=== PATIENT | female | born 1935 | race Caucasian/White ===

== ENCOUNTER 2016-09-05 15:22 | Emergency (ER) | payer OTHER ==
[~2016-09-05] VITALS: Ht 160 cm; Wt 60.0 kg
[~2016-09-05 15:22] MED LIST: AMLO5 PO; ATOR40TA49 PO; CLOP75 PO; COQ-100C2 PO; ESZO3 PO; FLUO-1 PO; GLIM4 PO; ISOSPOW PO; LORTA5 PO; OMEG100037 PO; PRIM50TA PO; PROT40TA PO; TAB-TAB PO; TRAD5TAB PO
[2016-09-05 15:25] VITALS: BP 144/71; PULSE 92; RESP 18; TEMP 98.4; O2SAT 95
[2016-09-05] MEDS ORDERED: MULT1TAB46 PO (15:50)
[2016-09-05] MEDS ORDERED: LIPI80TA PO (15:50)
[2016-09-05] MEDS ORDERED: LUNE3TAB PO (15:50)
[2016-09-05] MEDS ORDERED: PROT40TA PO (15:50)
[2016-09-05] MEDS ORDERED: FISH1000 PO (15:50)
[2016-09-05] MEDS ORDERED: COQ-50CA2 PO (15:50)
[2016-09-05] MEDS ORDERED: TRAD5TAB PO (15:50)
[2016-09-05] MEDS ORDERED: PLAV75TA29 PO (15:50)
[2016-09-05] MEDS ORDERED: AMAR4TAB PO (15:50)
[2016-09-05] MEDS ORDERED: ISOS20TA PO (15:50)
[2016-09-05] MEDS ORDERED: PRIM50TA5 PO (15:50)
[2016-09-05] MEDS ORDERED: ASPIRIN 81 MG CHEW TAB PO ONE (16:00)
[2016-09-05] MEDS ORDERED: SODIUM CHLORIDE 0.9% FLUSH 10 ML FLUSH IVF PRN (16:00)
[2016-09-05] MEDS ORDERED: NITROGLYCERIN 0.4 MG SL 25 TABS/BTL SL ONE (16:00)
[2016-09-05] MEDS ORDERED: SODIUM CHLORID 0.9% 500 ML INJ 500 ML IV ONE (16:00)
--- NOTE | 2016-09-05 16:02 | PD ---
HPI Chief Complaint: Chest Pain Time Seen by Provider: 15:38 Travel History International Travel<30 days: No Contact w/Intl Traveler<30days: No Traveled to known affect area: No History of Present Illness HPI The patient is a 81-year-old female who presents emergency department for right sided neck pain. The patient states she developed right sided neck pain proximal be 30 minutes prior to arrival while sitting in a car. She denies any trauma to right aspect of the neck. The pain is located over the right sternocleidomastoid, is worse with palpation, movement, and swallowing. She also states the pain radiates into the anterior aspect of the right chest. She does have a history of costochondritis and states she has tenderness of the anterior aspect of the chest on the right. The pain is described as dull, achy , worse with palpation and movement, slightly alleviated at rest. Patient denies any nausea, vomiting, diaphoresis, or shortness of breath. She denies any recent exertional shortness of breath. The patient does have a history of CAD with previous stent placement by her churn tender, Dr. Sinclair. Symptoms are moderate, symptoms exacerbated by movement and palpation, slightly alleviated at rest. 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) Cardiac Catheterization: Yes Cardiovascular Problems: Yes High Cholesterol: Yes Chemotherapy: No Chest Pain: Yes Congestive Heart Failure: No COPD: Yes Cerebrovascular Accident: No Diabetes: Yes Patient Takes Glucophage: No Diminished Hearing: No Endocrine: No Gastrointestinal Disorders: Yes GERD: Yes Glaucoma: No Genitourinary: No Headaches: No Hepatitis: No Hiatal Hernia: No Hypertension: Yes Immune Disorder: No Kidney Stones: No Musculoskeletal: Yes Neurologic: Yes (ESSENTIAL TREMORS) Psychiatric: Yes Reproductive: No Respiratory: Yes Immunizations Current: Yes Migraines: Yes Myocardial Infarction: No Radiation Therapy: No Renal Failure: No Seizures: No Sickle Cell Disease: No Sleep Apnea: No Thyroid Disease: No Ulcer: Yes Influenza Vaccination: Yes ?: Not Menopausal: Yes Past Surgical History Abdominal Surgery: No AICD: No Appendectomy: No Arteriovenous Shunt: No Cardiac Surgery: Yes (STENTS 06/2004) Cholecystectomy: No Coronary Stent: Yes (X1) Ear Surgery: No Endocrine Surgery: No Eye Surgery: No Genitourinary Surgery: No Gynecologic Surgery: No Insulin Pump: No Joint Replacement: No Oral Surgery: No Pacemaker: No Thoracic Surgery: No Other Surgery: Yes (stent in 2005, 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, cataracts bilat) Social History Alcohol Use: No Tobacco Use: No Substance Use: No Allergies-Medications (Allergen,Severity, Reaction): Coded Allergies: Contrast Media (Verified Allergy, Severe, Respiratory Failure, 09/05/16) Penicillin (Verified Allergy, Severe, Rash, 09/05/16) Morphine (Verified Allergy, Unknown, 09/05/16) Reported Meds & Prescriptions Reported Meds & Active Scripts Active Reported Primidone 50 Mg Tab 100 Mg PO HS Protonix (Pantoprazole Sodium) 40 Mg Tab 40 Mg PO DAILY Fish Oil ([place]-3 Fatty Acids) 1,000 Mg Cap 5,000 Mg PO HS Multi Vitamin Daily (Multiple Vitamin) 1 Tab Tab 1 Tab PO DAILY Tradjenta (Linagliptin) 5 Mg Tab 5 Mg PO DAILY Isosorbide Mononitrate 20 Mg Tab 20 Mg PO BID Take 2 doses 7 hours apart. Amaryl (Glimepiride) 4 Mg Tab 8 Mg PO HS Take with breakfast or first main meal Lunesta (Eszopiclone) 3 Mg Tablet 0.5 Tab PO HS Coq-10 (Coenzyme Q10 (Ubidecarenone)) 50 Mg Cap 1 Tab PO DAILY Plavix (Clopidogrel Bisulfate) 75 Mg Tab 75 Mg PO Q3D Lipitor (Atorvastatin Calcium) 80 Mg Tab 80 Mg PO HS Review of Systems Except as stated in HPI: all other systems reviewed are Neg General / Constitutional: No: Fever HENT: Positive: Neck Pain, No: Headaches Cardiovascular: Positive: Chest Pain or Discomfort, No: Diaphoresis Respiratory: No: Shortness of Breath Gastrointestinal: No: Nausea, Vomiting, Abdominal Pain Musculoskeletal: No: Myalgias, Arthralgias Skin: No Rash Physical Exam Narrative GENERAL: Awake, alert, pleasant 81-year-old female who appears her stated age and is in no acute respiratory distress. SKIN: Focused skin assessment warm/dry. HEAD: Atraumatic. Normocephalic. EYES: Pupils equal and round. No scleral icterus. No injection or drainage. ENT: No nasal bleeding or discharge. Mucous membranes pink and moist. NECK: Trachea midline. No JVD. Tenderness of the right sternocleidomastoid. CARDIOVASCULAR: Regular rate and rhythm. No murmur appreciated. Palpation of the right chest wall produces symptoms. RESPIRATORY: No accessory muscle use. Clear to auscultation. Breath sounds equal bilaterally. GASTROINTESTINAL: Abdomen soft, non-tender, nondistended. No rebound tenderness. MUSCULOSKELETAL: No obvious deformities. No clubbing. No cyanosis. No edema. NEUROLOGICAL: Awake and alert. No obvious cranial nerve deficits. Motor grossly within normal limits. Normal speech. PSYCHIATRIC: Appropriate mood and affect; insight and judgment normal. Data Data Last Documented VS Vital Signs Date Time Temp Pulse Resp B/P Pulse Ox O2 Delivery O2 Flow Rate FiO2 09/05/16 20:01 81 16 167/74 96 Room Air 164/63 09/05/16 15:25 98.4 Orders Ckmb (Isoenzyme) Profile (09/05/16 15:57) Complete Blood Count With Diff (09/05/16 15:57) Comprehensive Metabolic Panel (09/05/16 15:57) Magnesium (Mg) (09/05/16 15:57) Prothrombin Time / Inr (Pt) (09/05/16 15:57) Act Partial Throm Time (Ptt) (09/05/16 15:57) Troponin I (09/05/16 15:57) Chest, Single Ap (09/05/16 15:57) Ecg Monitoring (09/05/16 15:57) Bilateral Bp Monitoring (09/05/16 15:57) Iv Access Insert/Monitor (09/05/16 15:57) Oximetry (09/05/16 15:57) Oxygen Administration (09/05/16 15:57) Aspirin Chew (Aspirin Chew) (09/05/16 16:00) Sodium Chloride 0.9% Flush (Ns Flush) (09/05/16 16:00) Nitroglycerin Sl (Nitrostat Sl) (09/05/16 16:00) Sodium Chlorid 0.9% 500 Ml Inj (Ns 500 M (09/05/16 16:00) Troponin I (09/05/16 19:00) Ketorolac Inj (Toradol Inj) (09/05/16 16:45) Electrocardiogram (09/05/16 15:25) Labs Laboratory Tests Test 09/05/16 09/05/16 16:00 19:00 White Blood Count 8.7 TH/MM3 Red Blood Count 3.81 MIL/MM3 Hemoglobin 11.4 GM/DL Hematocrit 34.1 % Mean Corpuscular Volume 89.6 FL Mean Corpuscular Hemoglobin 30.0 PG Mean Corpuscular Hemoglobin 33.5 % Concent Red Cell Distribution Width 13.9 % Platelet Count 261 TH/MM3 Mean Platelet Volume 7.9 FL Neutrophils (%) (Auto) 65.6 % Lymphocytes (%) (Auto) 22.0 % Monocytes (%) (Auto) 11.4 % Eosinophils (%) (Auto) 0.6 % Basophils (%) (Auto) 0.4 % Neutrophils # (Auto) 5.7 TH/MM3 Lymphocytes # (Auto) 1.9 TH/MM3 Monocytes # (Auto) 1.0 TH/MM3 Eosinophils # (Auto) 0.1 TH/MM3 Basophils # (Auto) 0.0 TH/MM3 CBC Comment DIFF FINAL Differential Comment Prothrombin Time 10.3 SEC Prothromb Time International 0.9 RATIO Ratio Activated Partial 21.0 SEC Thromboplast Time Sodium Level 135 MEQ/L Potassium Level 4.0 MEQ/L Chloride Level 99 MEQ/L Carbon Dioxide Level 26.8 MEQ/L Anion Gap 9 MEQ/L Blood Urea Nitrogen 44 MG/DL Creatinine 0.87 MG/DL Estimat Glomerular Filtration 63 ML/MIN Rate Random Glucose 97 MG/DL Calcium Level 8.9 MG/DL Magnesium Level 2.4 MG/DL Total Bilirubin 0.3 MG/DL Aspartate Amino Transf 19 U/L (AST/SGOT) Alanine Aminotransferase 24 U/L (ALT/SGPT) Alkaline Phosphatase 81 U/L Total Creatine Kinase 62 U/L Troponin I LESS THAN 0.02 LESS THAN 0.02 NG/ML NG/ML Total Protein 7.6 GM/DL Albumin 3.7 GM/DL [facility] Medical Decision Making Medical Screen Exam Complete: Yes Emergency Medical Condition: Yes Medical Record Reviewed: Yes Interpretation(s) EKG reveals sinus rhythm with sinus arrhythmia. No significant ST elevations or depressions noted. Last Impressions Chest X-Ray 09/05/16 1486 Signed Impressions: Service Date/Time: Monday, September 05, 2016 16:03 - CONCLUSION: 1. Sequela of prior granulomatous disease. 2. No acute cardiopulmonary disease. Alberto Negron MD Laboratory Tests Test 09/05/16 09/05/16 16:00 19:00 White Blood Count 8.7 TH/MM3 Red Blood Count 3.81 MIL/MM3 Hemoglobin 11.4 GM/DL Hematocrit 34.1 % Mean Corpuscular Volume 89.6 FL Mean Corpuscular Hemoglobin 30.0 PG Mean Corpuscular Hemoglobin 33.5 % Concent Red Cell Distribution Width 13.9 % Platelet Count 261 TH/MM3 Mean Platelet Volume 7.9 FL Neutrophils (%) (Auto) 65.6 % Lymphocytes (%) (Auto) 22.0 % Monocytes (%) (Auto) 11.4 % Eosinophils (%) (Auto) 0.6 % Basophils (%) (Auto) 0.4 % Neutrophils # (Auto) 5.7 TH/MM3 Lymphocytes # (Auto) 1.9 TH/MM3 Monocytes # (Auto) 1.0 TH/MM3 Eosinophils # (Auto) 0.1 TH/MM3 Basophils # (Auto) 0.0 TH/MM3 CBC Comment DIFF FINAL Differential Comment Prothrombin Time 10.3 SEC Prothromb Time International 0.9 RATIO Ratio Activated Partial 21.0 SEC Thromboplast Time Sodium Level 135 MEQ/L Potassium Level 4.0 MEQ/L Chloride Level 99 MEQ/L Carbon Dioxide Level 26.8 MEQ/L Anion Gap 9 MEQ/L Blood Urea Nitrogen 44 MG/DL Creatinine 0.87 MG/DL Estimat Glomerular Filtration 63 ML/MIN Rate Random Glucose 97 MG/DL Calcium Level 8.9 MG/DL Magnesium Level 2.4 MG/DL Total Bilirubin 0.3 MG/DL Aspartate Amino Transf 19 U/L (AST/SGOT) Alanine Aminotransferase 24 U/L (ALT/SGPT) Alkaline Phosphatase 81 U/L Total Creatine Kinase 62 U/L Troponin I LESS THAN 0.02 LESS THAN 0.02 NG/ML NG/ML Total Protein 7.6 GM/DL Albumin 3.7 GM/DL Differential Diagnosis Differential diagnosis includes carotid dissection, atypical chest pain, GERD, esophageal spasm, ACS, musculoskeletal pain, pulmonary embolism. Narrative Course IV was established, labs are drawn and sent, and the patient was placed on cardiac telemetry monitoring and continuous pulse oximetry monitoring. The patient was administered aspirin 162 mg orally for pain and nitroglycerin sublingual times one. Chest x-ray was obtained. EKG was ordered and interpreted. I reviewed the patient's EMR, she had a negative nuclear medicine myocardial perfusion scan performed October 04, 2015, stress test was interpreted by Dr. Newman as no acute ischemic changes. The patient's initial troponin is negative. The patient has right sided neck pain and chest pain is reproducible with palpation and movement, most likely musculoskeletal origin. However, she does have a history of CAD with risk factors, therefore, second troponin was ordered. I believe if the second troponin is negative the patient can follow-up with her churn tender on an outpatient basis. The patient was provided Toradol 15 mg intravenously for her right sided neck pain. Second troponin is less than 0.02. Patient is stable for outpatient follow-up. Diagnosis Primary Impression: Neck pain Additional Impression: Atypical chest pain Patient Instructions: General Instructions Additional Instructions: Continue home medications as previously directed. Follow-up with your primary physician and/or churn tender. Return if symptoms worsen or progress. Med/Other Pt SpecificInfo: No Change to Meds Disposition: 01 DISCHARGE HOME Condition: Stable Modesto Liu MD Sep 05, 2016 16:02
--- NOTE | 2016-09-05 16:14 | RADRPT ---
EXAM DATE/TIME: 09/05/2016 16:03 [facility] COMPARISON: CHEST SINGLE AP, October 03, 2015, 13:15. INDICATIONS : Chest pain. MEDICAL HISTORY : Hypertension. Hypercholesterolemia. Diabetes mellitus type 2. COPD. SURGICAL HISTORY : Angioplasty. ENCOUNTER: Initial ACUITY: 1 day PAIN SCORE: 6/10 LOCATION: Bilateral chest FINDINGS: Redemonstration of multiple calcified bilateral nodules similar to prior exam. No new focal pleural-p arenchymal opacities. Cardiomediastinal contours are within normal limits. Bony thorax is intact. CONCLUSION: 1. Sequela of prior granulomatous disease. 2. No acute cardiopulmonary disease. Alberto Negron MD on September 05, 2016 at 16:10 Board Certified Radiologist. This report was verified electronically.
[2016-09-05 16:15] LABS: AUTOMATED NEUTROPHIL # 5.7 TH/MM3 (1.8-7.7); BASOPHIL % 0.4 % (0.0-2.0); EOSINOPHIL # 0.1 TH/MM3 (0-0.4); EOSINOPHIL % 0.6 % (0.0-4.0); HEMATOCRIT 34.1 % (35.0-46.0); HEMO FLAGS DIFF FINAL; LYMPHOCYTE # 1.9 TH/MM3 (1.0-4.8); MEAN CELL VOLUME 89.6 FL (80.0-100.0); MEAN CORPUSCULAR HGB CONC 33.5 % (32.0-36.0); MONO % 11.4 % (0.0-8.0); NEUT % 65.6 % (16.0-70.0); PLATELET COUNT 261 TH/MM3 (150-450); RED BLOOD COUNT 3.81 MIL/MM3 (4.00-5.30); RED CELL DISTRIBUTION WIDTH 13.9 % (11.6-17.2); WHITE BLOOD COUNT 8.7 TH/MM3 (4.0-11.0)
[2016-09-05 16:20] LABS: CHLORIDE 99 MEQ/L (98-107); SODIUM (NA) 135 MEQ/L (136-145)
[2016-09-05 16:24] LABS: ANION GAP 9 MEQ/L (5-15); BICARBONATE 26.8 MEQ/L (21.0-32.0); BLOOD UREA NITROGEN 44 MG/DL (7-18); INTERNATIONAL NORMALIZED RATIO 0.9 RATIO; MAGNESIUM 2.4 MG/DL (1.5-2.5); PROTHROMBIN TIME - PATIENT 10.3 SEC (9.8-11.6)
[2016-09-05 16:27] LABS: ALT (GPT) 24 U/L (10-53); AST (GOT) 19 U/L (15-37); GLOMERULAR FILTRATION RATE 63 ML/MIN (>89)
[2016-09-05 16:29] LABS: TOTAL BILIRUBIN ADULT 0.3 MG/DL (0.2-1.0)
[2016-09-05 16:30] LABS: ALKALINE PHOSPHATASE 81 U/L (45-117)
[2016-09-05 16:32] LABS: CREATINE KINASE 62 U/L (26-192)
[2016-09-05] MEDS ORDERED: KETOROLAC TROMETHAMINE 30 MG/ML (IVP) VIAL IV PUSH ONE (16:45)
[2016-09-05 17:00] VITALS: O2SAT 97
[2016-09-05 17:15] VITALS: BP 156/72; PULSE 84; RESP 14; O2SAT 97
[2016-09-05 19:07] VITALS: BP 155/62; PULSE 76; RESP 16; O2SAT 98
[2016-09-05 20:01] VITALS: BP_SYST 164; BP_SYST 167; BP_DIAS 63; BP_DIAS 74; PULSE 81; RESP 16; O2SAT 96
--- NOTE | 2016-09-05 20:28 | PD ---
Physical Exam Date Seen by Provider: Sep 05, 2016 Time Seen by Provider: 19:45 Narrative accepted in transfer of care from Dr Liu GENERAL: Pleasant elderly female in no acute distress no respiratory distress sitting on stretcher eating rafael crackers and drinking apple juice voicing no concerns or complaints at this time SKIN: Warm and dry. HEAD: Normocephalic. EYES: No scleral icterus. No injection or drainage. ENT: Mucous membranes moist airway is patent dentition intact no tenderness to palpation over the #30 and 31 dentition where patient has crowns in place. NECK: Supple, trachea midline. No JVD or lymphadenopathy. Nontender to direct palpation no carotid bruits bilaterally. CARDIOVASCULAR: Regular rate and rhythm without murmurs, gallops, or rubs. Chest wall: Reproducible tenderness to the right anterior chest wall in location of discomfort at time of presentation. RESPIRATORY: Breath sounds equal bilaterally. No accessory muscle use. GASTROINTESTINAL: Abdomen soft, non-tender, nondistended. MUSCULOSKELETAL: No cyanosis, or edema. Radial and dorsalis pedis pulses 2+ to palpation bilaterally. BACK: Nontender without obvious deformity. No CVA tenderness. Data Data Last Documented VS Vital Signs Date Time Temp Pulse Resp B/P Pulse Ox O2 Delivery O2 Flow Rate FiO2 09/05/16 20:01 81 16 167/74 96 Room Air 164/63 09/05/16 15:25 98.4 Orders Ckmb (Isoenzyme) Profile (09/05/16 15:57) Complete Blood Count With Diff (09/05/16 15:57) Comprehensive Metabolic Panel (09/05/16 15:57) Magnesium (Mg) (09/05/16 15:57) Prothrombin Time / Inr (Pt) (09/05/16 15:57) Act Partial Throm Time (Ptt) (09/05/16 15:57) Troponin I (09/05/16 15:57) Chest, Single Ap (09/05/16 15:57) Ecg Monitoring (09/05/16 15:57) Bilateral Bp Monitoring (09/05/16 15:57) Iv Access Insert/Monitor (09/05/16 15:57) Oximetry (09/05/16 15:57) Oxygen Administration (09/05/16 15:57) Aspirin Chew (Aspirin Chew) (09/05/16 16:00) Sodium Chloride 0.9% Flush (Ns Flush) (09/05/16 16:00) Nitroglycerin Sl (Nitrostat Sl) (09/05/16 16:00) Sodium Chlorid 0.9% 500 Ml Inj (Ns 500 M (09/05/16 16:00) Troponin I (09/05/16 19:00) Ketorolac Inj (Toradol Inj) (09/05/16 16:45) Electrocardiogram (09/05/16 15:25) Labs Laboratory Tests Test 09/05/16 09/05/16 16:00 19:00 White Blood Count 8.7 TH/MM3 Red Blood Count 3.81 MIL/MM3 Hemoglobin 11.4 GM/DL Hematocrit 34.1 % Mean Corpuscular Volume 89.6 FL Mean Corpuscular Hemoglobin 30.0 PG Mean Corpuscular Hemoglobin 33.5 % Concent Red Cell Distribution Width 13.9 % Platelet Count 261 TH/MM3 Mean Platelet Volume 7.9 FL Neutrophils (%) (Auto) 65.6 % Lymphocytes (%) (Auto) 22.0 % Monocytes (%) (Auto) 11.4 % Eosinophils (%) (Auto) 0.6 % Basophils (%) (Auto) 0.4 % Neutrophils # (Auto) 5.7 TH/MM3 Lymphocytes # (Auto) 1.9 TH/MM3 Monocytes # (Auto) 1.0 TH/MM3 Eosinophils # (Auto) 0.1 TH/MM3 Basophils # (Auto) 0.0 TH/MM3 CBC Comment DIFF FINAL Differential Comment Prothrombin Time 10.3 SEC Prothromb Time International 0.9 RATIO Ratio Activated Partial 21.0 SEC Thromboplast Time Sodium Level 135 MEQ/L Potassium Level 4.0 MEQ/L Chloride Level 99 MEQ/L Carbon Dioxide Level 26.8 MEQ/L Anion Gap 9 MEQ/L Blood Urea Nitrogen 44 MG/DL Creatinine 0.87 MG/DL Estimat Glomerular Filtration 63 ML/MIN Rate Random Glucose 97 MG/DL Calcium Level 8.9 MG/DL Magnesium Level 2.4 MG/DL Total Bilirubin 0.3 MG/DL Aspartate Amino Transf 19 U/L (AST/SGOT) Alanine Aminotransferase 24 U/L (ALT/SGPT) Alkaline Phosphatase 81 U/L Total Creatine Kinase 62 U/L Troponin I LESS THAN 0.02 LESS THAN 0.02 NG/ML NG/ML Total Protein 7.6 GM/DL Albumin 3.7 GM/DL [facility] Medical Record Reviewed: Yes Supervised Visit with NILESH: No Differential Diagnosis accepted in transfer of care from Dr Liu, please refer to Dr Liu's dictation Narrative Course accepted in transfer of care from Dr Liu; for follow up pending #2 troponin I: less than 0.02, patient reports discomfort is 0-1/10 in intensity exacerbating discharged to home offered observation admission for chest pain center protocol patient states that after receiving Toradol injection her symptoms have resolved and she would like to be discharged home with close follow-up with her primary care provider youth teacher as is aware of offer for observation stay for ongoing monitoring of cardiac rhythm cardiac enzymes EKG and to evaluate for recurrence of symptoms. Patient does not want to stay and appears stable at this time for ongoing outpatient management is encouraged to use acetaminophen only for discomfort and to return to the emergency department for any recurrence of symptoms. Diagnosis Primary Impression: Neck pain Additional Impression: Atypical chest pain Patient Instructions: General Instructions Additional Instruction: Continue home medications as previously directed. Follow-up with your primary physician and/or youth teacher. Return if symptoms worsen or progress. May use as needed Tylenol for discomfort. Med/Other Pt SpecificInfo: No Change to Meds Disposition: 01 DISCHARGE HOME Condition: Stable Emily Buckley MD Sep 05, 2016 20:28
--- NOTE | 2016-09-06 13:53 | EKG ---
Date Performed: 09/05/2016 Time Performed: 15:25:50 PTAGE: 81 years EKG: Sinus rhythm WITH SINUS ARRHYTHMIA NORMAL ECG Compared to prior tracing no significant change PREVIOUS TRACING :10/03/15 DOCTOR: Claudia Min Interpretating Date/Time 09/06/2016 13:47:09
== END 2016-09-05 21:24 | disposition home or self-care (01) ==
LOC: PHED 15:22
DX: M54.2 Cervicalgia (principal); R07.89 Other chest pain; I49.8 Other specified cardiac arrhythmias; I25.10 Atherosclerotic heart disease of native coronary artery without angina pectoris; J45.909 Unspecified asthma, uncomplicated; E78.00 Pure hypercholesterolemia, unspecified; J44.9 Chronic obstructive pulmonary disease, unspecified; E11.9 Type 2 diabetes mellitus without complications; I10 Essential (primary) hypertension; G25.0 Essential tremor; K21.9 Gastro-esophageal reflux disease without esophagitis; Z95.5 Presence of coronary angioplasty implant and graft
CPT/HCPCS: 71010; 80053; 82550; 83735; 84484; 85025; 85610; 85730; 93005; 96361; 96374; 99285; J1885; J7040

== ENCOUNTER 2016-09-19 15:05 | Emergency (ER) | payer OTHER ==
[~2016-09-19] VITALS: Ht 160 cm; Wt 59.0 kg
[~2016-09-19 15:05] MED LIST changes: +AMAR4TAB PO; -AMLO5 PO; -ATOR40TA49 PO; -CLOP75 PO; -COQ-100C2 PO; +COQ-50CA2 PO; -ESZO3 PO; +FISH1000 PO; -FLUO-1 PO; -GLIM4 PO; +ISOS20TA PO; -ISOSPOW PO; +LIPI80TA PO; -LORTA5 PO; +LUNE3TAB PO; +MULT1TAB46 PO; -OMEG100037 PO; +PLAV75TA29 PO; -PRIM50TA PO; +PRIM50TA5 PO; -TAB-TAB PO
[2016-09-19 15:09] VITALS: BP 137/59; PULSE 79; RESP 16; TEMP 97.1; O2SAT 96
--- NOTE | 2016-09-19 15:26 | PD ---
HPI Chief Complaint: Fall Time Seen by Provider: 15:15 Travel History International Travel<30 days: No Contact w/Intl Traveler<30days: No Traveled to known affect area: No History of Present Illness HPI 81-year-old female notes lost her balance with her essential tremors and fell and hit her head. She did not lose consciousness. She notes pain to her head and neck and denies other complaints. She states she has lost her balance before with her essential tremors and this is not a new thing for her. She denies other concurrent complaints. Quality is pressure. Severity is moderate. Severity is from standing. She states that she takes Plavix for stent. 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) Cardiac Catheterization: Yes Cardiovascular Problems: Yes High Cholesterol: Yes Chemotherapy: No Chest Pain: Yes Congestive Heart Failure: No COPD: Yes Cerebrovascular Accident: No Diabetes: Yes Diminished Hearing: No Endocrine: No Gastrointestinal Disorders: Yes GERD: Yes Glaucoma: No Genitourinary: No Headaches: No Hepatitis: No Hiatal Hernia: No Hypertension: Yes Immune Disorder: No Kidney Stones: No Musculoskeletal: Yes Neurologic: Yes (ESSENTIAL TREMORS) Psychiatric: Yes Reproductive: No Respiratory: Yes Immunizations Current: Yes Migraines: Yes Myocardial Infarction: No Radiation Therapy: No Renal Failure: No Seizures: No Sickle Cell Disease: No Sleep Apnea: No Thyroid Disease: No Ulcer: Yes Menopausal: Yes Past Surgical History Abdominal Surgery: No AICD: No Appendectomy: No Arteriovenous Shunt: No Cardiac Surgery: Yes (STENTS 06/2004) Cholecystectomy: No Coronary Stent: Yes (X1) Ear Surgery: No Endocrine Surgery: No Eye Surgery: No Genitourinary Surgery: No Gynecologic Surgery: No Insulin Pump: No Joint Replacement: No Oral Surgery: No Pacemaker: No Thoracic Surgery: No Other Surgery: Yes (stent in 2004, 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, cataracts bilat) Social History Alcohol Use: No Tobacco Use: No Substance Use: No Allergies-Medications (Allergen,Severity, Reaction): Coded Allergies: Contrast Media (Verified Allergy, Severe, Respiratory Failure, 09/19/16) Penicillin (Verified Allergy, Severe, Rash, 09/19/16) Morphine (Verified Allergy, Unknown, 09/19/16) Reported Meds & Prescriptions Reported Meds & Active Scripts Active Reported Primidone 50 Mg Tab 100 Mg PO HS Protonix (Pantoprazole Sodium) 40 Mg Tab 40 Mg PO DAILY Fish Oil ([place]-3 Fatty Acids) 1,000 Mg Cap 5,000 Mg PO HS Multi Vitamin Daily (Multiple Vitamin) 1 Tab Tab 1 Tab PO HS Tradjenta (Linagliptin) 5 Mg Tab 5 Mg PO DAILY Isosorbide Mononitrate 20 Mg Tab 20 Mg PO BID Take 2 doses 7 hours apart. Amaryl (Glimepiride) 4 Mg Tab 8 Mg PO DAILYAC Take with breakfast or first main meal Lunesta (Eszopiclone) 3 Mg Tablet 0.5 Tab PO HS Coq-10 (Coenzyme Q10 (Ubidecarenone)) 50 Mg Cap 1 Tab PO DAILY Plavix (Clopidogrel Bisulfate) 75 Mg Tab 75 Mg PO Q3 DAYS Lipitor (Atorvastatin Calcium) 80 Mg Tab 40 Mg PO HS Review of Systems Except as stated in HPI: all other systems reviewed are Neg Physical Exam Narrative General: 81 y/o patient in no apparent distress Skin: Warm and dry Eyes: Pupils equal, eomi NECK: C-collar in place Cardiovascular: Regular rate and rhythm Respiratory: Normal respiratory effort noted, clear to auscultation bilaterally at apices Abdomen: soft, nontender, nondistended Back: No step-offs, midline spine nontender with palpation Extremities: No pain over main joints Neuro: awake, alert, sensation and motor grossly intact Data Data Last Documented VS Vital Signs Date Time Temp Pulse Resp B/P Pulse Ox O2 Delivery O2 Flow Rate FiO2 09/19/16 15:45 16 97 Room Air 09/19/16 15:09 97.1 79 137/[address] Brain W/O Iv Contrast(Rout) (09/19/16 15:21) Ct Cerv Spine W/O Contrast (09/19/16 15:21) MDM Medical Decision Making Medical Screen Exam Complete: Yes Emergency Medical Condition: Yes Medical Record Reviewed: Yes (past history confirm) Interpretation(s) Last [address] 09/19/16 1521 Signed Impressions: Service Date/Time: Monday, September 19, 2016 15:21 - CONCLUSION: 1. No evidence of acute intracranial pathology. No masses are identified. Syed Gallegos MD Cervical Spine CT 09/19/16 1521 Signed Impressions: Service Date/Time: Monday, September 19, 2016 15:21 - CONCLUSION: 1. No acute bony fracture. 2. Mild retrolisthesis of C5 over C6 along with moderate primary bony degenerative changes, disc degeneration and disc space narrowing. 3. Moderate central disc osteophyte complex at C5-6. 4. Bilateral facet arthritis at multiple levels. Gregorio Welch MD Differential Diagnosis Intercranial injury, fracture, strain Narrative Course Will check CT brain and CT C-spine and reevaluate on recheck patient requesting her sugar checked accucheck 66, given juice, not wanting other labs and wanting to go, advised to recheck in 20 minutes accucheck in 90s patient still not wanting other testing, Patient denies any new complaints and states that they are feeling better. Patient happy with care , all questions answered. Patient knows that follow up is incumbent on them and to return to the emergency room immediately if new or worsening symptoms develop. Patient given strict return precautions, vitals reviewed and are normal , agrees to further workup as an outpatient. Diagnosis Primary Impression: Fall Qualified Code: W19.XXXA - Fall, initial encounter Additional Impressions: Neck pain Headache Qualified Code: R51 - Acute nonintractable headache, unspecified headache type Patient Instructions: General Instructions Additional Instructions: tylenol as needed, follow with primary this week for recheck, return as needed Med/Other Pt SpecificInfo: No Change to Meds Disposition: 01 DISCHARGE HOME Condition: Stable Yvrose Murphy MD Sep 19, 2016 15:25
--- NOTE | 2016-09-19 15:47 | RADRPT ---
EXAM DATE/TIME: 09/19/2016 15:21 [facility] COMPARISON: No previous studies available for comparison. INDICATIONS : Trauma, fall. RADIATION DOSE: 64.82 CTDIvol (mGy) MEDICAL HISTORY : Cardiovascular disease. Hypertension. Diabetes mellitus type 2. SURGICAL HISTORY : None. ENCOUNTER: Initial ACUITY: 1 day PAIN SCALE: 5/10 LOCATION: cranial TECHNIQUE: Multiple contiguous axial images were obtained of the head. Using automated exposure control and adj ustment of the mA and/or kV according to patient size, radiation dose was kept as low as reasonably a chievable to obtain optimal diagnostic quality images. DICOM format image data is available electro nically for review and comparison. FINDINGS: CEREBRUM: The ventricles are normal for age. No evidence of midline shift, mass lesion, hemorrhage or acute in farction. No extra-axial fluid collections are seen. POSTERIOR FOSSA: The cerebellum and brainstem are intact. The 4th ventricle is midline. The cerebellopontine angle i s unremarkable. EXTRACRANIAL: The visualized portion of the orbits is intact. SKULL: The calvaria is intact. No evidence of skull fracture. CONCLUSION: 1. No evidence of acute intracranial pathology. No masses are identified. Syed Gallegos MD on September 19, 2016 at 15:43 Board Certified Radiologist. This report was verified electronically.
--- NOTE | 2016-09-19 15:54 | RADRPT ---
EXAM DATE/TIME: 09/19/2016 15:21 [facility] COMPARISON: No previous studies available for comparison. INDICATIONS : Trauma, fall. RADIATION DOSE: 25.19 CTDIvol (mGy) MEDICAL HISTORY : Cardiovascular disease. Hypertension. Diabetes mellitus type 2. SURGICAL HISTORY : None. ENCOUNTER: Initial ACUITY: 1 day PAIN SCALE: 5/10 LOCATION: neck TECHNIQUE: Volumetric scanning of the cervical spine was performed. Multiplanar reconstructions in the sagittal, coronal and oblique axial planes were performed. Using automated exposure control and adjustment o f the mA and/or kV according to patient size, radiation dose was kept as low as reasonably achievable to obtain optimal diagnostic quality images. DICOM format image data is available electronically f or review and comparison. FINDINGS: VERTEBRAE: Normal vertebral body height. There is moderate primary degenerative changes involving the mid to low er cervical spine. There is mild retrolisthesis of C5 over C6. There is disc space narrowing at C5-6. No acute bony fractures. C2-C3: The bony spinal canal is normal in size. No evidence of disc bulge or herniation. The neural forami na are bilaterally patent. C3-C4: The bony spinal canal is normal in size. No evidence of disc bulge or herniation. The neural forami na are bilaterally patent. Bilateral facet arthritis. C4-C5: The bony spinal canal is normal in size. No evidence of disc bulge or herniation. The neural forami na are bilaterally patent. Bilateral facet arthritis. C5-C6: There is a central moderate disc osteophyte complex. The neural foramina are patent bilaterally. C6-C7: Mild broad-based bulging. The neural foramina are patent bilaterally. C7-T1: The bony spinal canal is normal in size. No evidence of disc bulge or herniation. The neural forami na are bilaterally patent. Dense calcifications of the carotid arteries bilaterally. CONCLUSION: 1. No acute bony fracture. 2. Mild retrolisthesis of C5 over C6 along with moderate primary bony degenerative changes, disc dege neration and disc space narrowing. 3. Moderate central disc osteophyte complex at C5-6. 4. Bilateral facet arthritis at multiple levels. Gregorio Welch MD on September 19, 2016 at 15:48 Board Certified Radiologist. This report was verified electronically.
== END 2016-09-19 16:56 | disposition home or self-care (01) ==
LOC: PHED 15:05
DX: M54.2 Cervicalgia (principal); R51 Headache; G25.0 Essential tremor; I10 Essential (primary) hypertension; E11.9 Type 2 diabetes mellitus without complications; E78.00 Pure hypercholesterolemia, unspecified; W19.XXXA Unspecified fall, initial encounter; Z79.01 Long term (current) use of anticoagulants; Z79.84 Long term (current) use of oral hypoglycemic drugs; Z87.39 Personal history of other diseases of the musculoskeletal system and connective tissue; Z87.09 Personal history of other diseases of the respiratory system; Z86.59 Personal history of other mental and behavioral disorders; Z86.79 Personal history of other diseases of the circulatory system; Z87.19 Personal history of other diseases of the digestive system
CPT/HCPCS: 70450; 72125; 99285

== ENCOUNTER 2017-02-27 19:18 | Emergency (ER) | payer OTHER ==
[~2017-02-27] VITALS: Ht 160 cm; Wt 61.3 kg
[~2017-02-27 19:18] MED LIST changes: +ESZO3 PO; -LUNE3TAB PO
[2017-02-27 19:31] VITALS: BP 104/52; PULSE 75; RESP 18; TEMP 98.4; O2SAT 96
[2017-02-27] MEDS ORDERED: ISOS20TA2 PO (19:54)
[2017-02-27] MEDS ORDERED: DULO20 PO (19:54)
[2017-02-27] MEDS ORDERED: ALPR.5 PO (19:54)
[2017-02-27] MEDS ORDERED: LUTE20CA PO (19:54)
[2017-02-27] MEDS ORDERED: PROT40TA PO (19:54)
[2017-02-27] MEDS ORDERED: EMPA1TAB3 PO (19:54)
[2017-02-27] MEDS ORDERED: PROP40TA3 PO (19:54)
[2017-02-27] MEDS ORDERED: CO Q100C9 PO (19:54)
[2017-02-27] MEDS ORDERED: CALC1TAB87 PO (19:54)
[2017-02-27] MEDS ORDERED: CINN500C2 PO (19:54)
[2017-02-27] MEDS ORDERED: DEXAMETHASONE SOD PHOS 4 MG/ML VIAL IM ONE (20:00)
--- NOTE | 2017-02-27 20:06 | PD ---
HPI Chief Complaint: Pain: Acute or Chronic Time Seen by Provider: 19:51 Travel History International Travel<30 days: No Contact w/Intl Traveler<30days: No Traveled to known affect area: No History of Present Illness HPI Patient comes in complaining of sciatica flare. Patient reports history of this and feels same. Patient states she last to get a cortisone injections. Patient states that she had bumped in the right low back by shopping cart causing a flareup. Patient reports occurred around 1500 today. Denies falling , change in bowel or bladder, fevers, numbness or tingling anywhere, or abdominal pain. Patient reports pain in his right low back by her SI joint radiates distally to her foot. Pain is worse with certain movement. Denies anything making it better. Patient reports blood sugars running 110-120. 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) Cardiac Catheterization: Yes (2004) Cardiovascular Problems: Yes High Cholesterol: Yes Chemotherapy: No Chest Pain: Yes Congestive Heart Failure: No COPD: Yes Diabetes: Yes Patient Takes Glucophage: No Diminished Hearing: No Endocrine: No Gastrointestinal Disorders: Yes GERD: Yes Glaucoma: No Genitourinary: No Headaches: No Hepatitis: No Hiatal Hernia: No Hypertension: Yes Immune Disorder: No Kidney Stones: No Musculoskeletal: Yes Neurologic: Yes (ESSENTIAL TREMORS) Psychiatric: Yes Reproductive: No Respiratory: Yes Immunizations Current: Yes Migraines: Yes Myocardial Infarction: No Radiation Therapy: No Renal Failure: No Seizures: No Sickle Cell Disease: No Sleep Apnea: No Thyroid Disease: No Ulcer: Yes Tetanus Vaccination: < 5 Years Influenza Vaccination: Yes ?: Not Menopausal: Yes Past Surgical History Abdominal Surgery: No AICD: No Appendectomy: No Arteriovenous Shunt: No Cardiac Surgery: Yes (/2004) Cholecystectomy: No Coronary Stent: Yes (-2004) Ear Surgery: No Endocrine Surgery: No Eye Surgery: Yes Genitourinary Surgery: No Gynecologic Surgery: No Insulin Pump: No Joint Replacement: No Oral Surgery: No Pacemaker: No Thoracic Surgery: No Other Surgery: Yes (stent in 2004, 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, cataracts bilat) Social History Alcohol Use: No Tobacco Use: No (quit 20 yrs ago smoked cigs) Substance Use: No Allergies-Medications (Allergen,Severity, Reaction): Coded Allergies: diatrizoate meglumine (Unverified Allergy, Severe, Respiratory Failure, ) gadobenic acid (Unverified Allergy, Severe, Respiratory Failure, 02/27/17) gadodiamide (Unverified Allergy, Severe, Respiratory Failure, 02/27/17) gadoteridol (Unverified Allergy, Severe, Respiratory Failure, 02/27/17) iodixanol (Unverified Allergy, Severe, Respiratory Failure, 02/27/17) iohexol (Unverified Allergy, Severe, Respiratory Failure, 02/27/17) penicillin G (Unverified Allergy, Severe, Rash, 02/27/17) morphine (Unverified Allergy, Unknown, 02/27/17) Reported Meds & Prescriptions Reported Meds & Active Scripts Active Prednisone 10 Mg Tab 10 Mg PO DAILY 3 Days Reported Jardiance (Empagliflozin) 25 Mg Tab 25 Mg PO DAILY Cymbalta DR (Duloxetine HCl) 20 Mg Capdr 20 Mg PO DAILY Propranolol (Propranolol HCl) 40 Mg Tab 40 Mg PO DAILY Calcium 600 with Vitamin D (Calcium Carbonate-Cholecalciferol) 600-400 mg-Unit Tab 1 Tab PO DAILY Eql Cinnamon (Cinnamon) 500 Mg Cap 2,000 Mg PO DAILY Co Q 10 (Coenzyme Q10 (Ubidecarenone)) 100 Mg-5 Unit Cap 1 Tab PO DAILY Lutein 20 Mg Cap 20 Mg PO DAILY Protonix (Pantoprazole Sodium) 40 Mg Tab 40 Mg PO DAILY Xanax (Alprazolam) 0.5 Mg Tab 0.5 Mg PO Q8H PRN Isosorbide Dinitrate 20 Mg Tab 20 Mg PO DAILY Fish Oil ([place]-3 Fatty Acids) 1,000 Mg Cap 1,200 Mg PO HS Tradjenta (Linagliptin) 5 Mg Tab 5 Mg PO DAILY Amaryl (Glimepiride) 4 Mg Tab 8 Mg PO DAILYAC Take with breakfast or first main meal Lunesta (Eszopiclone) 3 Mg Tablet 1 Tab PO HS Plavix (Clopidogrel Bisulfate) 75 Mg Tab 75 Mg PO Q3 DAYS Lipitor (Atorvastatin Calcium) 80 Mg Tab 20 Mg PO HS Review of Systems Except as stated in HPI: all other systems reviewed are Neg Physical Exam Narrative GENERAL: Well-developed, well nourished, in no acute distress, and non-ill appearing. SKIN: Focused skin assessment warm and dry. HEAD: Atraumatic. Normocephalic. EYES: Pupils equal and round. EOMI. No scleral icterus. No injection or drainage. ENT: No nasal bleeding or discharge. Mucous membranes pink and moist. NECK: Trachea midline. Supple. No nuclear rigidity. CARDIOVASCULAR: Dorsal pulses 2+, intact, and equal bilaterally. RESPIRATORY: No accessory muscle use. No respiratory distress. GASTROINTESTINAL: Abdomen soft, non-tender, nondistended, and no guarding. Hepatic and splenic margins not palpable. No pulsatile mass. MUSCULOSKELETAL: No obvious deformities. No clubbing. No cyanosis. No edema. Full range of motion. No tenderness or crepitus over midline lumbar spine. Patient reports is near right SI joint. Straight leg test bilaterally is negative. Hip: FROM and equal BL with passive flexion, extension, Abduction, Adduction, and internal/external rotation. Pulses equal BL distal to injury. Capillary refill less than 2 seconds distal to injury and equal BL. FROM distal to injury and equal BL. Strength distal to injury equal BL. NV intact distal to injury and equal BL. Plantar flexion and dorsal flexion equal BL. Dorsal pulses equal BL. Sensation equal BL 1st web space. NEUROLOGICAL: Awake and alert. No obvious cranial nerve deficits. Motor grossly within normal limits. Normal speech. PSYCHIATRIC: Appropriate mood and affect; insight and judgment normal. Data Data Last Documented VS Vital Signs Date Time Temp Pulse Resp B/P (MAP) Pulse Ox O2 Delivery O2 Flow Rate FiO2 02/27/17 20:33 02/27/17 19:31 98.4 75 18 96 Orders Orders Dexamethasone Inj (Decadron Inj) (02/27/17 20:00) Ed Discharge Order (02/27/17 20:07) MDM Medical Decision Making Medical Screen Exam Complete: Yes Emergency Medical Condition: Yes Differential Diagnosis Fracture, strain, contusion, sciatica Narrative Course The patient presented complaining of back pain with radiation down leg. There was no history of recent fall and has history of the same. There was no evidence to support genitourinary etiology. There is also no evidence to suggest vascular pathology such as AAA dissection. No fevers or other evidence to suspect infectious processes, abscess, osteomyelitis etc. The patients neurological exam is normal with normal motor and sensory. There is no saddle paresthesias reported and no change in bowel or bladder. I suspect the pain is mechanical in nature with sciatica. Clinical suspicion, plan of care and management was discussed with the patient. The patient was instructed to follow up with their health care provider. The patient was also instructed to return if the pain worsened, changed, or developed weakness or bowel or bladder trouble. The patient agreed with plan. Patient in no obvious distress upon re-evaluation. Patient was asked if they wanted to speak to my attending, which the patient did not wish to do at this time. Any questions/concerns in reference to patient diagnosis/condition discussed and clarified prior to patient's discharge. Reinforced sheer importance of close follow up with patient's primary physician or primary care clinic. Instructed patient to return to ED immediately, if symptoms return/ worsen. Patient showed understanding of above instructions. Further instructions and recommendations were detailed in discharge paperwork. Patient ambulated without difficulty out of ED at discharge. Diagnosis Primary Impression: Sciatica Qualified Codes: M54.31 - Sciatica, right side Patient Instructions: General Instructions, Sciatica (ED) Additional Instructions: Follow-up with your primary care physician and/or orthopedic in 2-3 days for reevaluation. Take all medication as prescribed. Return to the emergency department if symptoms get worse. Med/Other Pt SpecificInfo: Prescription(s) given Scripts Prednisone (Prednisone) 10 Mg Tab 10 MG PO DAILY for 3 Days, #3 TAB 0 Refills Prov: Emily Buckley MD 02/27/17 Disposition: 01 DISCHARGE HOME Condition: Stable Jose Cornejo Feb 27, 2017 20:06
[2017-02-27] MEDS ORDERED: PRED10 PO (20:07)
== END 2017-02-27 20:33 | disposition home or self-care (01) ==
LOC: PHEFT 19:18
DX: M54.41 Lumbago with sciatica, right side (principal); K21.9 Gastro-esophageal reflux disease without esophagitis; E11.9 Type 2 diabetes mellitus without complications; E78.00 Pure hypercholesterolemia, unspecified; I10 Essential (primary) hypertension; Z79.84 Long term (current) use of oral hypoglycemic drugs; Z87.891 Personal history of nicotine dependence
CPT/HCPCS: 96372; 99284; J1100

== ENCOUNTER 2017-04-26 15:52 | Emergency (ER) | payer OTHER ==
[~2017-04-26] VITALS: Ht 161.3 cm; Wt 59.7 kg
[~2017-04-26 15:52] MED LIST changes: +ALPR.5 PO; +CALC1TAB87 PO; +CINN500C2 PO; +CO Q100C9 PO; -COQ-50CA2 PO; +DULO20 PO; +EMPA1TAB3 PO; -ISOS20TA PO; +ISOS20TA2 PO; +LUTE20CA PO; -MULT1TAB46 PO; +PRED10 PO; -PRIM50TA5 PO; +PROP40TA3 PO
[2017-04-26 15:58] VITALS: BP 129/59; PULSE 76; RESP 16; TEMP 97.7; O2SAT 98
[2017-04-26] MEDS ORDERED: ATOR40TA16 PO (16:10)
[2017-04-26] MEDS ORDERED: PROP10TA6 PO (16:10)
[2017-04-26] MEDS ORDERED: EMPA1TAB PO (16:10)
--- NOTE | 2017-04-26 16:55 | PD ---
HPI Chief Complaint: Diabetic Time Seen by Provider: 16:04 Travel History International Travel<30 days: No Contact w/Intl Traveler<30days: No Traveled to known affect area: No History of Present Illness HPI Patient is an 81 yo female with a history of diabetes presenting with elevated blood glucose. For the past 5 days her sugars have been elevated at 265 which is unusual for her. Today when she checked her sugar 2 hours post-prandial it measured 405. She was concerned and went to see her GAMES MANAGER who was concerned from hyperosmolar hyperglycemic nonketotic syndrome. Patient is currently asymptomatic. Denies any recent illness or antibiotic use. Denies use of corticosteroids. Currently taking Tradjenta and glimipiride for diabetes. She has been taking her mediations as prescribed. She has not changed her diet. She is followed by and bureau chief, Dr. Moise. 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) Cardiac Catheterization: Yes (2004) Cardiovascular Problems: Yes (htn on meds, stents in place, MA) High Cholesterol: Yes Chemotherapy: No Chest Pain: Yes Congestive Heart Failure: No COPD: Yes Diabetes: Yes (type 2) Diminished Hearing: No Endocrine: No Gastrointestinal Disorders: Yes GERD: Yes Glaucoma: No Genitourinary: No Headaches: No Hepatitis: No Hiatal Hernia: No Hypertension: Yes Immune Disorder: No Kidney Stones: No Musculoskeletal: Yes Neurologic: Yes (ESSENTIAL TREMORS) Psychiatric: Yes Reproductive: No Respiratory: Yes Immunizations Current: Yes Migraines: Yes Myocardial Infarction: No Radiation Therapy: No Renal Failure: No Seizures: No Sickle Cell Disease: No Sleep Apnea: No Thyroid Disease: No Ulcer: Yes ?: Not Menopausal: Yes Past Surgical History Abdominal Surgery: No AICD: No Appendectomy: No Arteriovenous Shunt: No Cardiac Surgery: Yes (/2004) Cholecystectomy: No Coronary Stent: Yes (-2004) Ear Surgery: No Endocrine Surgery: No Eye Surgery: Yes Genitourinary Surgery: No Gynecologic Surgery: No Insulin Pump: No Joint Replacement: No Oral Surgery: No Pacemaker: No Thoracic Surgery: No Other Surgery: Yes (stent in 2004, 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, cataracts bilat) Social History Alcohol Use: No Tobacco Use: No (quit 20 yrs ago smoked cigs) Substance Use: No Allergies-Medications (Allergen,Severity, Reaction): Coded Allergies: diatrizoate meglumine (Unverified Allergy, Severe, Respiratory Failure, 04/26/17) gadobenic acid (Unverified Allergy, Severe, Respiratory Failure, 04/26/17) gadodiamide (Unverified Allergy, Severe, Respiratory Failure, 04/26/17) gadoteridol (Unverified Allergy, Severe, Respiratory Failure, 04/26/17) iodixanol (Unverified Allergy, Severe, Respiratory Failure, 04/26/17) iohexol (Unverified Allergy, Severe, Respiratory Failure, 04/26/17) penicillin G (Unverified Allergy, Severe, Rash, 04/26/17) morphine (Unverified Allergy, Unknown, 04/26/17) Reported Meds & Prescriptions Reported Meds & Active Scripts Active Reported Propranolol (Propranolol HCl) 10 Mg Tab 10 Mg PO Q12HR Jardiance (Empagliflozin) 10 Mg Tab 10 Mg PO DAILY Atorvastatin (Atorvastatin Calcium) 40 Mg Tab 40 Mg PO HS Cymbalta DR (Duloxetine HCl) 20 Mg Capdr 20 Mg PO DAILY Calcium 600 with Vitamin D (Calcium Carbonate-Cholecalciferol) 600-400 mg-Unit Tab 1 Tab PO DAILY Eql Cinnamon (Cinnamon) 500 Mg Cap 2,000 Mg PO DAILY Co Q 10 (Coenzyme Q10 (Ubidecarenone)) 100 Mg-5 Unit Cap 1 Tab PO DAILY Xanax (Alprazolam) 0.5 Mg Tab 0.5 Mg PO Q8H PRN Isosorbide Dinitrate 20 Mg Tab 20 Mg PO DAILY Fish Oil ([place]-3 Fatty Acids) 1,000 Mg Cap 1,200 Mg PO HS Tradjenta (Linagliptin) 5 Mg Tab 5 Mg PO DAILY Amaryl (Glimepiride) 4 Mg Tab 8 Mg PO DAILYAC Take with breakfast or first main meal Plavix (Clopidogrel Bisulfate) 75 Mg Tab 75 Mg PO Q3 DAYS Review of Systems Except as stated in HPI: all other systems reviewed are Neg Physical Exam Narrative GENERAL: Well appearing, well nourished female in no acute distress. SKIN: Warm and dry. HEAD: Atraumatic. Normocephalic. EYES: Pupils equal and round. No scleral icterus. No injection or drainage. ENT: No nasal bleeding or discharge. Mucous membranes pink and moist. NECK: Trachea midline. No JVD. CARDIOVASCULAR: Regular rate and rhythm. RESPIRATORY: No accessory muscle use. Clear to auscultation. Breath sounds equal bilaterally. GASTROINTESTINAL: Abdomen soft, non-tender, nondistended. Hepatic and splenic margins not palpable. MUSCULOSKELETAL: Extremities without clubbing, cyanosis, or edema. No obvious deformities. NEUROLOGICAL: Awake and alert. No obvious cranial nerve deficits. Motor grossly within normal limits. Five out of 5 muscle strength in the arms and legs. Normal speech. PSYCHIATRIC: Appropriate mood and affect; insight and judgment normal. Data Data Last Documented VS Vital Signs Date Time Temp Pulse Resp B/P (MAP) Pulse Ox O2 Delivery O2 Flow Rate FiO2 04/26/17 15:58 97.7 76 16 129/59 (82) 98 Orders Orders Bedside Glucose TERRI.CSUGAR (04/26/17 16:04) Chest, Pa & Lat (04/26/17 ) Urinalysis - C+S If Indicated (04/26/17 16:46) Ed Discharge Order (04/26/17 17:28) Labs Laboratory Tests Test 04/26/17 17:04 Urine Collection Type CLEAN CATCH Urine Color YELLOW Urine Turbidity CLEAR Urine pH 5.5 Urine Specific [place] 1.027 Urine Protein NEG mg/dL Urine Glucose (UA) 1000 OR GREATER mg/dL Urine Ketones NEG mg/dL Urine Occult Blood NEG Urine Nitrite NEG Urine Bilirubin NEG Urine Leukocyte Esterase NEG Urine WBC 0-2 /hpf Urine Squamous Epithelial Cells 0-5 /hpf Microscopic Urinalysis Comment CULT NOT INDICATED Urine Collection Time 1704 [facility] Medical Decision Making Medical Screen Exam Complete: Yes Emergency Medical Condition: Yes Differential Diagnosis Elevated blood sugar, DKA and likely, H&H is extremely unlikely, UTI, pneumonia unlikely, severe bacterial illness unlikely, Narrative Course Patient 81-year-old female type II diabetic has been compliant with her medications, asymptomatic elevated blood sugar prompted her visit to the ER today, blood sugars only 250 today. Appears that this is worsening of her chronic condition. A chest x-ray and a UA were sent both of which were reassuring. I do not see any utility in blood work at this time as the patient appears well in no obvious distress. Discussed need for follow-up with her bureau chief. She is stable for discharge. Discussed returning to ED criteria Diagnosis Primary Impression: Hyperglycemia due to type 2 diabetes mellitus Disposition: 01 DISCHARGE HOME Condition: Stable Devendra Reese MD Apr 26, 2017 16:55
--- NOTE | 2017-04-26 17:04 | RADRPT ---
EXAM DATE/TIME: 04/26/2017 16:50 [facility] COMPARISON: No previous studies available for comparison. INDICATIONS : Cough. MEDICAL HISTORY : Myocardial infarction. Hypertension. Hypercholesterolemia. Diabetes mellitus type 2. COPD SURGICAL HISTORY : Coronary artery stent. Angioplasty ENCOUNTER: Initial ACUITY: 1 month PAIN SCORE: 0/10 LOCATION: Bilateral chest FINDINGS: PA and lateral views of the chest demonstrate the lungs to be symmetrically aerated without evidence of mass, infiltrate or effusion. The cardiomediastinal contours are unremarkable. Osseous structure s are intact. CONCLUSION: No acute disease. Rayo Guaman MD FACR on April 26, 2017 at 17:01 Board Certified Radiologist. This report was verified electronically.
[2017-04-26 17:11] LABS: BILIRUBIN, URINE NEG (NEG); BLOOD, URINE NEG (NEG); GLUCOSE,URINE 1000 OR GREATER mg/dL (NEG); KETONE, URINE NEG (NEG); NITRITE,URINE NEG (NEG); PH, URINE 5.5 (5.0-8.5); URINE LEUKOCYTE ESTERASE NEG (NEG)
[2017-04-26 17:40] LABS: SQUAMOUS EPITHELIAL CELL URINE 0-5 /hpf (0-5); URINE COLOR YELLOW (YELLW/STRAW); WBC, URINE 0-2 /hpf (0-5)
== END 2017-04-26 17:58 | disposition home or self-care (01) ==
LOC: PHED 15:52
DX: E11.65 Type 2 diabetes mellitus with hyperglycemia (principal); I10 Essential (primary) hypertension; E78.00 Pure hypercholesterolemia, unspecified; G25.0 Essential tremor; I25.2 Old myocardial infarction; J44.9 Chronic obstructive pulmonary disease, unspecified; F41.9 Anxiety disorder, unspecified; F32.9 Major depressive disorder, single episode, unspecified; K21.9 Gastro-esophageal reflux disease without esophagitis; Z95.5 Presence of coronary angioplasty implant and graft; Z88.0 Allergy status to penicillin; Z88.5 Allergy status to narcotic agent; Z79.899 Other long term (current) drug therapy
CPT/HCPCS: 71046; 81001; 99284